=== PATIENT | male | born 1990 | race Caucasian/White ===

== ENCOUNTER 2020-02-24 12:02 | Emergency (ER) | payer OTHER ==
[~2020-02-24] VITALS: Ht 182.9 cm; Wt 127.0 kg
--- NOTE | 2020-02-24 16:41 | EKG ---
[facility] [address] [place], [place] [address] Signed Normal sinus rhythm Normal ECG No previous ECGs available Confirmed by MARIO GALLGEOS DO ([id number]) on 02/24/2020 4:40:43 PM Electronically Signed By: MARIO GALLEGOS DO 02/24/20 1641 PATIENT NAME: TAVON WRIGHTKELSY GARCIA Electrocardiogram DATE OF : 86 PHYSICIAN: MARIO GALLEGOS DO REPORT #: [id number] REPORT IS CONFIDENTIAL AND NOT TO BE RELEASED WITHOUT AUTHORIZATION
== END 2020-02-24 15:11 | disposition home or self-care (01) ==
LOC: ED 12:02
DX: J98.01 Acute bronchospasm (principal); Z87.891 Personal history of nicotine dependence; Z88.8 Allergy status to other drugs, medicaments and biological substances
CPT/HCPCS: 71045; 80053; 83735; 84484; 85025; 85379; 93005; 93010; 99285-25